=== PATIENT | male | born 1950 | race Caucasian/White ===

== ENCOUNTER 2018-01-18 06:22 | Day surgery (SDC) | payer OTHER ==
[2018-01-15 09:33] LABS: Absolute Lymphocytes (CBC) 1.3 K/uL (0.7-4.9); Absolute Monocytes 0.4 K/uL (0.1-1.3); Absolute Neutrophil 1.8 K/uL (1.8-8.0); Basophils % 0.5 % (0-1.3); Eosinophils % 2.9 % (0-4.4); Hematocrit 43.5 % (39.6-49.0); Lymphocytes % 35.4 % (15.3-44.8); MCH 31.8 pg (27.0-35.0); MCV 94.3 fL (80-100); MPV 7.6 fL (7.6-11.3); Monocytes % 10.1 % (3.3-12.3); RBC Red Blood Cell Count 4.61 M/uL (4.33-5.43)
[2018-01-15 09:42] LABS: Protime INR 0.97
[2018-01-15 09:51] LABS: Potassium 4.5 mmol/L (3.5-5.1)
--- NOTE | 2018-01-17 12:31 | PREOPHP ---
Date of Admission: 01/15/2018 History Of Present Illness: This patient presented to my office with a chief complaint of a painful right big toe joint present for over 2 years, worse with activity and relieved by rest. Pain is thro bbing in nature. The patient stated it appears with his normally walking at all times as well as his job. The patient has modified shoe gear, taken yysm-kyi-ridjmin anti-inflammatories, all to no avai l and requests evaluation. Current Medical History: Includes high cholesterol and thyroid disease. The patient has a past medi rafita history cancer and gout. Current Medications: Include levothyroxine 175 mcg tablet and atorvastatin 20 mg. Allergies: NKDA. Social History: The Patient denies tobacco or alcohol use. Past Surgical History: Includes thyroidectomy, surgery to his knee, surgery for bladder cancer, and hernia x2. Family History: Includes cancer in his father, high cholesterol in his mother, and diabetes in his b rother. Physical Examination: Vital signs: The patient's weight is 220 pounds, height 5 feet 8 inches. General appearance: The patient is healthy, well developed, well nourished, well oriented x3. Musculoskeletal: Vascular evaluation reveals dorsalis pedis and posterior tibial pulses to be 4/4 bi laterally. Capillary refill time is less than 3 seconds to all toes. Temperature gradient is within normal limits. There are no claudication complaint or varicosities noted. Foot assessment; there i s a flexible cavus foot type bilaterally. subtalar joint shows normal position, but there was a fore foot supinatus with adductus bilaterally. There is a dorsal eminence of the first metatarsal head wi th decreased range of motion to 40 degrees on the right foot. Remaining digits of both feet are note d to be in normal alignment. Muscle knee and ankle assessment is within normal limits. Lower extrem ity muscle strength and range of motion are equal and symmetric bilaterally. No soft tissue masses a re noted bilaterally. The big toe joint is in alignment, but shows dorsal enlargement, decreased ran ge of motion, and swelling, without redness or temp. Skin evaluation reveals no rash ulcer tumor or contracture of the skin bilaterally. Neurologic evaluation reveals deep tendon reflexes for the soto llar and Achilles to be 5/5 bilaterally. Vibratory and sharp dull sensation within normal limits. Radiographic Data: X-ray evaluation shows bones are well mineralized. The angle of the first metata rsal is within normal limits. There is no lateral deviation of the hallux or sesamoids and no increa se in the intermetatarsal angle. There is spurring of the first MPJ on the first metatarsal head and ossicle in the first MPJ. Diagnosis: Hallux rigidus, right foot, pain in the foot joints of the right foot with mild localized edema. Plan: The recommended treatment based on x-ray examination, lack of conservative care results, and t he patient discomfort and problem with function in everyday life is for a cheilectomy of the first MP J on the right foot with a use of Cartiva implant to restore pain-free motion to the first MPJ. The patient understands the risks, benefits, and alternatives of the above mentioned procedure including, but not limited to the risk of pain, swelling, numbness, stiffness, infection, nonhealing of skin or bone, recurrence or progression of the cartilaginous damage to the first MPJ requiring further surge ry in the future. The patient understands the risk of DVT and PEs and has been explained the signs a nd symptoms. Preoperative lab work has been performed. Medical H and P will be completed by Anesthe linnea. The patient has been given instructions for the cold therapy unit and written postop instructio ns with emergency phone number. Surgery is scheduled to [facility] on January 18, 2018 . SALAS Voice ID: [id number]
[2018-01-18] MEDS ORDERED: Ringers Lactate 1,000 ML IV ONE (06:46)
[2018-01-18] MEDS ORDERED: CEFAZOLIN/SWI 1gm 1 GM/10 ML SYR ONE (06:46)
[2018-01-18] MEDS ORDERED: MIDAZOLAM HCL 2 MG/2 ML INJ ONE (07:01)
[2018-01-18] MEDS ORDERED: PROPOFOL 200 MG/20 ML VIAL IV ONE ×2 (07:01→08:18)
[2018-01-18] MEDS ORDERED: LIDOCAINE 2% MPF 5 ML VIAL ONE (07:02)
[2018-01-18] MEDS ORDERED: FENTANYL CITR 100 MCG/2 ML ONE (07:03)
[2018-01-18] MEDS ORDERED: LIDOCAINE 1% 20 ML MDV ONE (07:15)
[2018-01-18] MEDS ORDERED: BUPIVACAINE 0.5% PF 10 ML VIAL ONE (07:15)
--- NOTE | 2018-01-18 10:23 | RAD REPORT ---
EXAM DESCRIPTION: RAD - Foot Right 2 View - 01/18/2018 9:49 am CLINICAL HISTORY: Foot pain, first MTP joint surgery not otherwise specified COMPARISON: None. FINDINGS: Postop AP and cross-table lateral views were obtained. Surgical procedure performed was no t specified. There is evidence for postsurgical change to the medial margin first metatarsal head. No hardware is in place. Mild degenerative change at the first MTP present. This involves the articular surfaces of the metatarsal head and proximal phalanx. No joint space narrowing. No erosive or destru ctive bony process. No foreign body. Elsewhere no acute bone or joint finding. IMPRESSION: Postsurgical changes to the medial margin first metatarsal head. No suspicious or unexpe cted finding.
--- NOTE | 2018-01-18 11:39 | OP ---
Date of Procedure: 01/18/2018 Surgeon: Mikhail Harry DPM Preoperative Diagnosis: Hallux rigidus, right foot, first metatarsophalangeal joint. Postoperative Diagnosis: Hallux rigidus, right foot, first metatarsophalangeal joint. Procedure: Cheilectomy with Cartiva implant, first metatarsophalangeal joint, right foot. Anesthesia: Via local infiltration. Procedure In Detail: The patient brought into the operating room, placed on the operating room table in supine position. Once adequate IV sedation was obtained, the patient was injected with a total o f 10 cc of 0.5% Marcaine plain. The patient is prepped and draped in the usual sterile manner and th e right extremity was elevated to 60 degrees and Esmarch bandage was applied to exsanguinate the bloo d supply. Pneumatic ankle tourniquet was elevated to 250 mmHg and the Esmarch was removed. Attentio n was then directed to the first MPJ of the right foot, where a 5-cm dorsal linear incision was made. The incision was deepened via sharp and blunt dissection down to the level of the capsule. All cinda rovascular structures were avoided. All bleeders were clamped and bovied. There was severe degenera tive cartilaginous and fibrotic bone formation at the base of the proximal phalanx and the head of th e first metatarsal. These gross areas were removed with a rongeur. The medial and lateral capsule w ere freed from its bony attachments and the capsule was reflected medially and laterally dorsally on the proximal phalanx and the met head. This allowed plantar flexion of the hallux. Utilizing a Free r elevator, this was placed underneath the met head and freeing up the sesamoid apparatus. Utilizing the Cartiva implant system, the sizer was put in place. Adequate clearance was assured and the K-wi re was driven into the first metatarsal parallel to the shaft. The sizer was then removed with the a ppropriate attachment to create a hole in the head of the first metatarsal. The area was flushed wit h copious amounts of sterile saline and it was assured that the reamer device did not go too far. Th e area was cleaned. The 10-mm implant was then placed into the head of the first metatarsal and sat 2-mm proud. This was inconsistent with the technique. The area was flushed with copious amounts lazarus rile saline again. The medial, dorsal, and lateral degenerative bone were removed utilizing an oscil lating saw and osteotome and mallet. The area was smoothed utilizing a rotary emigdio. The area was fl ushed with copious amounts of sterile saline. The range of motion was then observed and approximatel y 80 degrees range of motion was obtained without bony contact. The capsular tissue was remodelled t o remove any redundancies of hypertrophic capsule in pannus material. There was flushed copious amou nts of sterile saline and capsular tissue was closed utilizing 2-0 Vicryl suture. Skin was reapproxi mated utilizing 4-0 Prolene horizontal mattress suture. The range of motion was seen to be still at 80 degrees without tracking or impingement. The foot was dressed with Adaptic, dry sterile gauze, dr shira bello Genaro, Kerlix, cold therapy pad, and Miles bandaging. Pneumatic ankle tourniquet was deflate d and capillary return was seen to be instantaneous to all digits. The patient will be seen in my of [facility]ia for postoperative care. Postop instructions and written information given. The patient was sen t to recovery room in satisfactory condition. PRESTON/JEB Voice ID: [id number] Report ID: [id number]
--- NOTE | 2018-01-18 11:45 | DS ---
Date of Discharge: 01/18/2018 Date Of Surgery: 01/18/2018. Surgeon: Mikhail Harry DPM. Preoperative Diagnosis: Hallux rigidus, right foot. Postoperative Diagnosis: Hallux rigidus, right foot. Procedure: Cheilectomy with Cartiva implant, 10 mm, first MPJ right foot. Anesthesia: Via local infiltration. Hospital Course: The patient tolerated the procedure and anesthesia well. The patient will be disch arged to home to ambulate in a postop shoe. The cold therapy unit has been placed and will be sent h ome with the patient for pain management as well as pain medication. The patient has written postop instructions and emergency phone number. The patient will be discharged per anesthesia guidelines to home. The patient will be followed up in my office in 1 week. SALAS Voice ID: [id number] Report ID: [id number]
== END 2018-01-18 11:10 | disposition home or self-care (01) ==
LOC: OR 06:22
PROVIDERS: ATTEND Podiatrist
PROC: 0SRM0JZ Replacement of Right Metatarsal-Phalangeal Joint with Synthetic Substitute, Open Approach (ICD-10-PCS; principal; 2018-01-18 07:30)
DX: M20.21 Hallux rigidus, right foot (principal)
CPT/HCPCS: 36415; 80048; 85025; 85610; 85730; J0690; J2250; J3010